=== PATIENT | male | born 1960 | race Caucasian/White ===

== ENCOUNTER → 2018-03-06 | Outpatient (CLI) | payer OTHER ==
--- NOTE | 2018-03-06 15:01 | RAD ---
EXAM: CT Abdomen and Pelvis without IV contrast CLINICAL HISTORY: right groin pain and buttock pain for 1 year off and on COMPARISON: none TECHNIQUE: Helical CT of the abdomen and pelvis without intravenous contrast. Axial, coronal and sagittal reformatted images were generated. PQRS compliance statement - One or more of the following individualized dose reduction techniques were utilized for this study: 1. Automated exposure control 2. Adjustment of the mA and/or kV according to patient size 3. Use of iterative reconstruction technique FINDINGS: Lack of intravenous contrast limits evaluation of solid organs, vasculature, and lymph nodes. Lower chest: Linear/nodular opacity in the lingula measures 1 cm, given the linear nature may also represent focal atelectasis. Abdomen and Pelvis: Liver is borderline enlarged measuring 18.4 cm in length. No focal liver lesion. Calcified granuloma are seen within the spleen. Adrenal glands are normal. Pancreas is unremarkable. Right upper pole hypodense renal lesion is too small to characterize. No renal tract calculus. No hydronephrosis. Bladder is unremarkable. Moderate colonic stool content. No evidence for bowel obstruction. No abnormal bowel dilatation. Small fat-containing periumbilical hernia is seen. Small fat-containing left inguinal hernia is also seen. No abdominal or pelvic ascites. No abdominal or pelvic lymphadenopathy. Bones: Multilevel degenerative changes of the spine are seen. IMPRESSION: 1. Fat-containing periumbilical and left inguinal hernias are seen. 2. Degenerative changes of the spine are seen most prominent at L5-S1. No definite fracture is identified. 3. Borderline enlarged liver. Electronically signed by: Marcel Laboy MD (03/06/2018 2:57 PM) [facility]
== END | disposition home or self-care (01) ==
LOC: CT 10:35
PROVIDERS: ATTEND Family Medicine
DX: K40.90 Unilateral inguinal hernia, without obstruction or gangrene, not specified as recurrent (principal); M51.37 Other intervertebral disc degeneration, lumbosacral region; N28.89 Other specified disorders of kidney and ureter; D73.89 Other diseases of spleen
CPT/HCPCS: 74176